=== PATIENT | female | born 1960 | race Caucasian/White ===

== ENCOUNTER 2016-12-11 12:42 | Day surgery (SDC) | payer OTHER ==
[2016-12-10 17:07] VITALS: BMI 31.4
[~2016-12-11 12:42] MED LIST: BETAMET ACET/BETAMET NA PH 30 MG/5 ML VIAL IJ ONE; BUPIVACAINE HCL/PF 0.25% (2.5MG/ML) 10 ML VIAL IJ ONE; IOHEXOL 180 MG/1 ML ML IJ ONE; LIDOCAINE HCL 1%, 10 MG/ML (20ML VIAL) IJ ONE
[2016-12-11 13:15] VITALS: TEMP 98.4
[2016-12-11] MEDS ORDERED: MIDAZOLAM HCL 2 MG/2 ML SINGLE DOSE VIAL ONE ×2 (14:39)
[2016-12-11] MEDS ORDERED: SODIUM CHLORIDE 0.9% P/F 10 ML VIAL IJ ONE (14:55)
[2016-12-11] MEDS ORDERED: IOHEXOL 180 MG/1 ML ML IJ ONE (14:57)
[2016-12-11] MEDS ORDERED: LIDOCAINE HCL 1%, 10 MG/ML (20ML VIAL) IJ ONE (14:57)
[2016-12-11] MEDS ORDERED: BETAMET ACET/BETAMET NA PH 30 MG/5 ML VIAL IJ ONE (14:57)
[2016-12-11] MEDS ORDERED: BUPIVACAINE HCL/PF 0.25% (2.5MG/ML) 10 ML VIAL IJ ONE (14:57)
[2016-12-11 20:33] VITALS: BP 135/91; PULSE 91
--- NOTE | 2016-12-17 17:18 | OP ---
DATE OF OPERATION: 12/11/2016 PREOPERATIVE DIAGNOSES: Low back pain, lumbar radiculopathy, lumbar fusion. POSTOPERATIVE DIAGNOSES: Low back pain, lumbar radiculopathy, lumbar fusion. PROCEDURE: Lumbar epidural steroid injection caudal with percutaneous adhesiolysis. ANESTHESIA: Local and MAC. ANESTHESIOLOGIST: DESCRIPTION OF PROCEDURE: I discussed with her in detail about the risks, benefits, and alternative treatments. The patient understood, agreed, and signed written consent. These were not only limited to infection, fever, headache, numbness, tingling or injury to nerves, blood vessels, or muscles. The patient was placed in the prone position with the head, abdomen, and legs supported with pillows. Lumbosacral area was prepped and draped with Betadine x3 and alcohol x3. Sacral hiatus was identified under fluoroscopy. At this level, 5 mL of 1% lidocaine were infiltrated. Next, a 3-1/2-inch Tuohy needle was approached through the caudal approach with loss of resistance under intermittent fluoroscopy, both AP and lateral view. was used to approach the L5-S1 level. At this level, 3 mL of Omnipaque was injected to see the flow of dye. There was some obstruction of the flow of the dye. The was manipulated, and a solution containing 2.5 mL of Celestone, 2.5 mL of 0.25% Marcaine, and 5 mL of normal saline total volume 10 mL was injected around the obstructing part and the foraminal area. After that, again, 2 mL of Omnipaque was injected to see the flow of the dye in AP and lateral view. Flow of dye was more proximal level at the L4-L5 level also. Tuohy needle with catheter was removed. Tip was confirmed. Bleeding was checked a sterile bandage was placed. The patient tolerated the procedure well. There were no immediate complications. The patient does feel numbness in the leg. Patient was observed and when she was able to walk and minimal numbness was gone, patient was discharged as per criteria. The patient tolerated the procedure well. There were no immediate complications. Patient was given the followup appointment. Patient was told to apply ice. If any problem, call me or report to ER. IRINEO METCALF M.D. MICHAEL/[id number]
== END 2016-12-11 19:30 | disposition home or self-care (01) ==
LOC: JASU-SURG 12:42
PROVIDERS: ATTEND Physical Medicine & Rehabilitation
PROC: 3E0S33Z Introduction of Anti-inflammatory into Epidural Space, Percutaneous Approach (ICD-10-PCS; 2016-12-11)
PROC: B01BYZZ Fluoroscopy of Spinal Cord using Other Contrast (ICD-10-PCS; 2016-12-11)
PROC: 3E0R3TZ Introduction of Destructive Agent into Spinal Canal, Percutaneous Approach (ICD-10-PCS; 2016-12-11)
PROC: 3E0S3BZ Introduction of Anesthetic Agent into Epidural Space, Percutaneous Approach (ICD-10-PCS; principal; 2016-12-11 14:00)
DX: M54.16 Radiculopathy, lumbar region (principal); M54.5 Low back pain; Z98.1 Arthrodesis status
CPT/HCPCS: 76000-TC

== ENCOUNTER 2020-01-12 04:46 | Day surgery (SDC) | payer OTHER ==
[2020-01-11 09:34] VITALS: BMI 32.9
[2020-01-12] MEDS ORDERED: LIDOCAINE HCL/PF 2% SDV 5ML VIAL ONE (10:39)
[2020-01-12] MEDS ORDERED: PROPOFOL 20 ML ONE (10:39)
[2020-01-12] MEDS ORDERED: MIDAZOLAM HCL 2 MG/2 ML SINGLE DOSE VIAL ONE (10:39)
[2020-01-12] MEDS ORDERED: ceFAZolin SODIUM 1 GM VIAL ONE (11:02)
[2020-01-12] MEDS ORDERED: LIDOCAINE HCL 1%, 10 MG/ML (20ML VIAL) ID ONE ×2 (11:20→12:23)
[2020-01-12] MEDS ORDERED: KETOROLAC TROMETHAMINE 30 MG/1 ML VIAL ONE (12:11)
[2020-01-12 14:15] VITALS: BP 115/86; PULSE 89; TEMP 97.3
--- NOTE | 2020-01-13 05:51 | PROC ---
Procedure Note Procedure: Date of service: 01/12/2020 Preoperative Diagnosis: Failed Back Surgery Syndrome, Lumbar Radiculopathy, Lumbar Spinal Stenosis Postoperative Diagnosis: Same Procedure Performed: 1) Insertion of spinal cord stimulator leads x 2 2) Fluoroscopic needle guidance 3) Initial programming of device Anesthesia: Local (2% Lidocaine )/MAC Anesthesiologist: Procedure: I discussed with the patient in detail about the risks, benefits and alternatives to treatment not only limited to infection, headache, numbness, weakness and injury to nerves, spinal cord, blood vessels and muscles. The patient understood, agreed and signed the written consent. The patient was positioned prone on the fluoroscopy table. The patient was prepped and draped in the usual sterile fashion using DuraPrep and a fenestrated drape. Routine vital sign monitors were applied and anesthesia was initiated. The patient remained conversant throughout the procedure. The area to be injected was determined using fluoroscopy. Local anesthetic was given by raising a skin wheal and going down to the hub of a 25-gauge 1.5-inch needle. The 25-gauge 3.5-inch needle was used to anesthetize down to just short of the ligamentum flavum to be entered. A 14-gauge Tuohy needle was then advanced to contact the right L1-L2 level. It was walked off in a superior medial direction until it entered the epidural space using loss of resistance to saline and air. The high - frequency spinal cord stimulator lead was advanced through the Tuohy needle and directed to rest the tip at the T9.. The same procedure was repeated in detail for the left side to insert a second lead within the epidural space to reside at T7 level. Lead position was confirmed both in AP and Lateral views under Fluoroscopy. The needles were withdrawn leaving the leads in place and were then secured to the patients skin using Stay-Fix adhesive bandages and Tegaderm. The patients back was cleaned. The patient was allowed to fully recover from anesthesia and taken to the recovery room in good position. The procedure was completed without co mplications and was tolerated well. The patient was monitored after the procedure. Stimulation programming and testing of the device was done in the recovery room by the device consumer sales representative. The patient (or responsible republican) was given post-procedure and discharge instructions to follow at home. The patient was discharged in stable condition. Pre-procedure pain score: X 8/10. Post-procedure pain score: 2/10. A follow-up appointment was made. If there is any problem, call my office at [phone] or report to Emergency Room. Ramsey Johnson M.D.
== END 2020-01-12 15:23 | disposition home or self-care (01) ==
LOC: JASU-SURG 04:46
PROVIDERS: ATTEND Physical Medicine & Rehabilitation
PROC: 4B01XVZ Measurement of Peripheral Nervous Stimulator, External Approach (ICD-10-PCS; 2020-01-12)
PROC: 00HU3MZ Insertion of Neurostimulator Lead into Spinal Canal, Percutaneous Approach (ICD-10-PCS; principal; 2020-01-12 10:00)
DX: M96.1 Postlaminectomy syndrome, not elsewhere classified (principal); M54.16 Radiculopathy, lumbar region; M48.061 Spinal stenosis, lumbar region without neurogenic claudication
CPT/HCPCS: 63650; 95972; C1897; 76000-TC-FY